=== PATIENT | male | born 1950 | race Caucasian/White ===

== ENCOUNTER 2017-01-10 06:22 | Inpatient (IN) | payer OTHER ==
[2016-12-19 13:20] VITALS: Ht 195.6 cm; Wt 97.6 kg
--- NOTE | 2016-12-19 13:47 | PAT Medication Instructions ---
Service Date Dec 19, 2016. Current Home Medication List Calcium Carbonate (Tums), 1 DOSE PO UD PRN for HEARTBURN Naproxen (Aleve), 220 MG PO Q12 PRN for Pain Medication Instructions For Your Scheduled Surgery - Hold the following medications 7 days prior to surgery per surgeon's instructions: Naproxen (Aleve), 220 MG PO Q12 PRN for Pain - Hold the following medications the morning of surgery: Calcium Carbonate (Tums), 1 DOSE PO UD PRN for HEARTBURN nothing to eat or drink after midnight If you have any questions please call us at [phone] or [phone] or [phone]
--- NOTE | 2016-12-19 14:19 | DIAGNOSTIC IMAGING REPORT ---
CHEST 2 VIEWS ROUTINE CLINICAL HISTORY: PAT preoperative evaluation COMPARISON STUDY: No previous studies for comparison. FINDINGS: The bones soft tissues and hemidiaphragms are normal. The cardiomediastinal silhouette is normal. The lungs are clear. The pulmonary vasculature is normal. IMPRESSION: Negative chest. The above report was generated using voice recognition software. It may contain grammatical, syntax or spelling errors. Electronically signed by: Eran Etienne M.D. 12/19/2016 2:18 PM Dictated Date/Time: 12/19/2016 2:17 PM
[2016-12-19 14:52] LABS: BASO % 0.4 %; BASO ABS # 0.03 K/uL (0-0.2); COMPLETE YES; EOS % 2.5 %; HEMATOCRIT 55.6 % (42-52); IG% 0.1 %; LYMPH % 14.6 %; MEAN CELL VOLUME 104.5 fL (80-100); MEAN CORPUSCULAR HEMOGLOBIN 35.9 pg (25-34); MEAN CORPUSCULAR HGB CONC 34.4 g/dl (32-36); MEAN PLATELET VOLUME 10.3 fL (7.4-10.4); MONO % 9.2 %; NEUT % 73.2 %; PLATELET COUNT 180 K/uL (130-400); RED BLOOD COUNT 5.32 M/uL (4.7-6.1); WHITE BLOOD COUNT 6.83 K/uL (4.8-10.8)
[2016-12-19 14:57] LABS: URINE APPEARANCE CLEAR (CLEAR); URINE COLOR ORANGE; URINE NITRITE POS (NEG); URINE PH 5.5 (4.5-7.5); URINE SPECIFIC GRAVITY 1.029 (1.000-1.030); UROBILINOGEN NEG (NEG)
[2016-12-19 14:59] LABS: CREATININE 1.5 mg/dl (0.60-1.40); ESTIMATED AVERAGE GLUCOSE 91 mg/dl; HA1C FLAG Normal (Normal); POTASSIUM 5.1 mmol/L (3.5-5.1)
[2016-12-19 15:03] LABS: MANUAL MICROSCOPIC REQUIRED? NO; REVIEW REQ? NO
[2016-12-19 15:04] LABS: URINE BILIRUBIN NEG (NEG)
[2016-12-19 15:09] LABS: INR 1.1 (0.9-1.1); PARTIAL THROMBOPLASTIN RATIO 1.1; PROTHROMBIN TIME (PATIENT) 11.3 SECONDS (9.0-12.0)
--- NOTE | 2016-12-19 15:48 | History and Physical ---
History & Physical Date Dec 19, 2016. Chief Complaint Bilateral knee pain History of Present Illness Mr Lázaro YATES is a 66 year old male who is here for a follow up of knee pain on the left greater than the right. He presents with crepitus, swelling, decreased rom, stiffness and weakness on the left side. In addition, he presents with pain on the left greater than the right. He states that the symptoms have been chronic non-traumatic. Patient is scheduled for bilateral knees TKA to be performed by Dr. French on 01/11/2017 at [facility]. The symptoms occur constantly with intermittent worsening. The problem is worse. Currently the patient states that the symptoms are moderate-severe. The pain is described as aching, discomforting and throbbing. The symptoms occur continuously. He rates his worst pain as 7/10. He rates his current pain as 5/10. The symptoms are aggravated by ascending stairs, daily activities, descending stairs, driving, first steps while awake, kneeling, movement, repetitive activities, sleeping in any position, squatting and walking. Ra states that the symptoms are relieved by no specific activity. In addition to knee pain on the left greater than the right the patient is also experiencing decreased mobility, difficulty bending, difficulty going to sleep, limping, nighttime awakening, pain, stiffness, tenderness and weakness. Pertinent negatives include chills and fever. The patient has had a previous x-ray. Prior NSAIDs include Aleve. He has been treated with a corticosteroid injection on the right and left side equally. Patient has been treated with previous visco supplementation, previous Euflexxa series of 3 injections to bilateral knees. No relief with previous injections. Past Medical/Surgical History denies history of HTN, high cholesterol, DM. Positive history of bladder cancer and GERD Past Surgical History cystoscopy for Bladder Ca Allergies Coded Allergies: No Known Allergies (Unverified , 12/19/16) Home Medications Scheduled PRN Calcium Carbonate (Tums), 1 DOSE PO UD PRN for HEARTBURN Naproxen (Aleve), 220 MG PO Q12 PRN for Pain Physical Examination Skin: warm/dry, no rash Eyes: normal inspection, EOMI, sclerae normal ENT: normal ENT inspection, pharynx normal Head: normocephalic, atraumatic Neck: supple, no adenopathy, trachea midline Respiratory/Chest: lungs clear, normal breath sounds, no respiratory distress Cardiovascular: regular rate, rhythm, no edema, no murmur Addiitonal Comments: Physical Exam Exam Findings Details Knee ROM L * Active ROM - Flexion: 125 degrees, Extension: 3 degrees, Factors: normal, Description: active pain free range of motion. Passive ROM - Flexion: 125 degrees, Extension: 3 degrees, Factors: normal, Description: passive pain free range of motion. Knee ROM R * Active ROM - Flexion: 125 degrees, Extension: 3 degrees, Factors: normal, Description: active pain free range of motion. Passive ROM - Flexion: 125 degrees, Extension: 3 degrees, Factors: normal, Description: passive pain free range of motion. Strength LE Normal Strength Description - Normal lower extremity: Bilateral. Knee * Inspection - Gait: normal. Alignment - Right: varus, Left: varus. Ecchymosis - Right: negative, Left: negative. Effusion - Right: mild, Left: mild. Swelling - Right: mild, Left: mild. Flexibility - Right: normal, Left: normal. Maximum tenderness - Right: medial joint line, Left: medial joint line. Patella exam - Crepitation - Right: negative, Left: negative. Patella position - Right: neutral, Left: neutral. Tilt - Right: equal, Left: equal. Darshan's - lateral - Right: Positive, Left: Positive. [facility]'s - medial - Right: Positive , Left: Positive. Knee Comments No calf tenderness Knee Normal Inspection - Atrophy - Right: Absent, Left: Absent. Skin - Right: Normal, Left: Normal. Patella exam - Apprehension - Right: Negative, Left: Negative. Q-angle - Right: Normal, Left: Normal. Ele's - Right: Negative, Left: Negative. Posterior drawer - Right: Negative, Left: Negative. Anterior drawer - Right: Negative, Left: Negative. Valgus stress - Right: Negative, Left : Negative. Varus stress - Right: Negative, Left: Negative. Extensor lag - Right : Normal, Left: Normal. Neurovascular LE Normal Neurovascular examination including reflexes, sensation , and pulses is within normal limits. Bilateral Knee X-ray Xrays reviewed of left and right knees showing findings consistent with degenerative joint disease including joint space narrowing, subchondral sclerosis and peripheral osteophyte formation. no acute bony pathology, overall varus alignment. Impression: degenerative joint disease of Bilateral knees with no acute bony pathology noted. Diagnosis Bilateral Knee DJD Further care discussed with patient and at this point in time has failed conservative measures and would like to proceed with bilateral total knee replacements. Plan on discharge will be home with home health physical therapy. DVT prophalaxis with TEDs, SCDs and will also place on aspirin 81 mg p.o. b.i.d. for a month postop. Patient will have follow up appointment in our office two weeks post op for staple/suture removal and re-evaluation. Patient otherwise has no other questions or concerns. GERD History of Bladder cancer
[~2017-01-10] VITALS: Ht 195.6 cm; Wt 97.6 kg
[2017-01-10] VITALS (8 sets, daily range): BP systolic 120–172; BP diastolic 80–97; PULSE 49–104; TEMP 36.4–36.6; O2SAT 95–97
[~2017-01-10 06:22] MED LIST: ACETAMINOPHEN 500 MG TAB PO SCH; CALC500C3 PO; CEFAZOLIN 2000 MG/60 ML D5W 60 ML IV SCH; CeleBREX 200 MG CAP PO SCH; DEXAMETHASONE 4 MG TAB PO SCH; FAMOTIDINE 20 MG TAB PO SCH; GABAPENTIN 300 MG CAP PO SCH; LACTATED RINGER'S 1000ML 1,000 ML IV SCH; LACTATED RINGER'S 1000ML 500 ML IV SCH; METOCLOPRAMIDE HCL 10 MG TAB PO SCH; NAPR1TAB9 PO
[2017-01-10] MEDS ORDERED: BUPIVACAINE 0.25% 30 ML VIAL ONE (06:28)
[2017-01-10] MEDS ORDERED: BUPIVACAINE 0.5 % 5 MG/1 ML PF 10ML VIAL ONE (06:28)
[2017-01-10] MEDS ORDERED: PROPOFOL IV EMULSION 10 MG/ML 20 ML VIAL IV ONE (06:43)
[2017-01-10] MEDS ORDERED: MIDAZOLAM HCL 1 MG/ML 2ML VIAL ONE ×2 (06:43→10:18)
[2017-01-10] MEDS ORDERED: LIDOCAINE HCL 2% 2 ML VIAL (20MG/ML) ONE (06:43)
--- NOTE | 2017-01-10 06:54 | History & Physical Bridge Note ---
H&P Re-Evaluation Bridge Note: I have examined the patient, reviewed the History & Physical and in the interval since the performance of the History & Physical I have noted the following changes of clinical significance: No changes noted
[2017-01-10] MEDS ORDERED: BACITRACIN 50000 UNIT VIAL ONE ×2 (07:54→07:55)
[2017-01-10] MEDS ORDERED: POVIDONE-IODINE OP SOLN 30 ML BTL ONE (07:54)
[2017-01-10] MEDS ORDERED: ORTHO JOINT ANESTHETIC ONE (07:54)
[2017-01-10] MEDS: TRANEXAMIC ACID INJ 1,000 MG in SODIUM CHLORIDE 0.9% 100ML 100 ML IV SCH ×2 (08:09→13:18)
[2017-01-10] MEDS ORDERED: ONDANSETRON INJ 2 MG/ML 2 ML VIAL IV PRN ×2 (09:30→11:45)
[2017-01-10] MEDS ORDERED: HYDROmorphone INJ 0.5 MG/0.5 ML SYR IV PRN (09:30)
[2017-01-10] MEDS ORDERED: ATROPINE SULFATE 0.1 MG/ML 5ML SYR IV PRN (09:30)
[2017-01-10] MEDS ORDERED: PHENYLEPHRINE 100MCG/ML 5ML SYR IV PRN (09:30)
[2017-01-10] MEDS ORDERED: EpHEDrine SULFATE INJ 50 MG/ML AMP IV PRN (09:30)
[2017-01-10] MEDS ORDERED: KETOROLAC TROMETHAMINE 15 MG/ML VIAL IV. PRN (09:30)
--- NOTE | 2017-01-10 11:00 | [facility] Operative Report ---
Operative Report Operative Date Jan 10, 2017. Pre-Operative Diagnosis Bilateral degenerative joint disease Post-Operative Diagnosis Bilateral degenerative joint disease Procedure(s) Performed Bilateral Total Knee Arthroplasty utilizing Pfeiffer & Nephew journey 2 patient matched right size 9 femur 8 tibia Ignacia 38 oval patella left size 8 femur the tibia 11 Ignacia [address] Sergio French [employer] Head Surgeon(s) Herman Keys PA-C Estimated Blood Loss 5cc rt 5 cc lt Findings Severe tricompartmental degenerative joint disease with varus alignment bilateral knees Specimens Specimen A. Left knee bone and tissue B. Right knee bone and tissue Complication(s) None Disposition Recovery Room / PACU Indications Severe end-stage DJD bilateral knees not responsive to conservative therapy including injections viscous supplementations corticosteroid injections well tarsectomy modification Description of Procedure After proper prepping and draping of the bilateral lower extremities, an anterior midline incision was made over the region of the extensor extensor mechanism of the left knee. After meticulous hemostasis was obtained and maintained in subcutaneous tissues a medial parapatellar incision was made The patella was subluxed lateralward the medial lateral gutter were cleaned from any hypertrophic synovitis and scar tissue of the distal femoral block was placed and the distal femoral osteotomy cut was made subsequently the chamfers anterior and posterior osteotomy cuts were made utilizing the 4-in-1 block the tibia was subsequently subluxed anteriorward medial and ateral meniscal remnants were excised in their entirety remnants of the anterior and posterior cruciate ligaments were excised in their entirety excellent exposure of the proximal tibia was obtained the tibial osteotomy guide was placed on the proximal tibial osteotomy cut was made once again the knee was irrigated with copious amounts of sterile saline solution the patella was subsequently everted lateralward thickened scar tissue around the patella was removed the patella was subsequently cut utilizing a freehand technique and was drilled prepared for final preparation and placement of patella socially flexion-extension gaps were checked and the equal and symmetric trials were placed to the appropriate femoral and tibial trials with poly-spacer being placed for equal flexion and extension gaps and full range of motion including extension to 0 and flexion to 140 the trial components after having been taken to recovery range of motion was subsequently removed meticulous hemostasis was obtained and maintained subsequently a knee block injection of joint cocktail including ropivacaine 0.5 % 150 mg. Bupivacaine 0.5% epinephrine 1-200,030 mL's toradol 30 mg dexamethasone 4 mg ketamine 10 mg clonidine 100 micrograms normal saline solution 30 mg was infiltrated into the soft tissues of the posterior knee medial lateral gutters and periosteal synovium special attention was paid to protect neurovascular structures at all times subsequently trial components having been removed the knee was irrigated with sterile saline solution. debris was removed the proximal tibia was subsequently prepared and was made ready for the placement of the tibial component tibial component was also cemented and tamped into position the femoral component was subsequently placed and cemented in the position the patellar component was subsequently cemented in position because hemostasis once again obtained and maintained wound having been thoroughly irrigated with debridement and debridement lavage was performed as well as a medial parapatellar incision closed with #1 Vicryl in interrupted fashion subcutaneous was closed with #2 Vicryl skin was closed with skin clips Next, an anterior midline incision was made over the region of the extensor extensor mechanism of the right knee. After meticulous hemostasis was obtained and maintained in subcutaneous tissues a medial parapatellar incision was made The patella was subluxed lateralward the medial lateral gutter were cleaned from any hypertrophic synovitis and scar tissue of the distal femoral block was placed and the distal femoral osteotomy cut was made subsequently the chamfers anterior and posterior osteotomy cuts were made utilizing the 4-in-1 block the tibia was subsequently subluxed anteriorward medial and ateral meniscal remnants were excised in their entirety remnants of the anterior and posterior cruciate ligaments were excised in their entirety excellent exposure of the proximal tibia was obtained the tibial osteotomy guide was placed on the proximal tibial osteotomy cut was made once again the knee was irrigated with copious amounts of sterile saline solution the patella was subsequently everted lateralward thickened scar tissue around the patella was removed the patella was subsequently cut utilizing a freehand technique and was drilled prepared for final preparation and placement of patella socially flexion-extension gaps were checked and the equal and symmetric trials were placed to the appropriate femoral and tibial trials with poly-spacer being placed for equal flexion and extension gaps and full range of motion including extension to 0 and flexion to 140 the trial components after having been taken to recovery range of motion was subsequently removed meticulous hemostasis was obtained and maintained subsequently a knee block injection of joint cocktail including ropivacaine 0.5 % 150 mg. Bupivacaine 0.5% epinephrine 1-200,030 mL's toradol 30 mg dexamethasone 4 mg ketamine 10 mg clonidine 100 micrograms normal saline solution 30 mg was infiltrated into the soft tissues of the posterior knee medial lateral gutters and periosteal synovium special attention was paid to protect neurovascular structures at all times subsequently trial components having been removed the knee was irrigated with sterile saline solution. debris was removed the proximal tibia was subsequently prepared and was made ready for the placement of the tibial component tibial component was also cemented and tamped into position the femoral component was subsequently placed and cemented in the position the patellar component was subsequently cemented in position because hemostasis once again obtained and maintained wound having been thoroughly irrigated with debridement and debridement lavage was performed as well as a medial parapatellar incision closed with #1 Vicryl in interrupted fashion subcutaneous was closed with #2 Vicryl skin was closed with skin clips.. PA-C was necessary for prepping and drapping as well as wound closure of deep fascia Sub cutaneous tissue and skin and was necessary for the case. A sterile compressive dressings were placed, patient was taken to recovery in stable condition of report dictated by Manolo I attest to the content of the Intraoperative Record and any orders documented therein. Any exceptions are noted below. I attest to the content of the Intraoperative Record and any orders documented therein. Any exceptions are noted below.
[2017-01-10] MEDS ORDERED: KETOROLAC TROMETHAMINE 30 MG/ML VIAL IV. SCH (11:45)
[2017-01-10] MEDS ORDERED: ALUMINUM/MAGNESIUM/SIMETH (MAALOX MAX) 30 ML UDC PO PRN (11:45)
[2017-01-10] MEDS ORDERED: MoRPHine SULFATE 2 MG/ML CARP IV PRN (11:45)
[2017-01-10] MEDS ORDERED: MAGNESIUM HYDROXIDE SUSP 30 ML UDC PO PRN (11:45)
[2017-01-10] MEDS ORDERED: BISACODYL 10 MG SUPP PR PRN (11:45)
--- NOTE | 2017-01-10 12:12 | DIAGNOSTIC IMAGING REPORT ---
RIGHT KNEE 2 VIEWS History: Right total knee arthroplasty. Degenerative arthritis. Postop. FINDINGS: The patient is status post a right total knee arthroplasty. The hardware is intact. No fracture or dislocation. Skin khoi and surgical drains are in place. IMPRESSION: Right total knee arthroplasty. No evidence for hardware complication. Electronically signed by: Easton Velez M.D. 01/10/2017 12:11 PM Dictated Date/Time: 01/10/2017 12:09 PM
--- NOTE | 2017-01-10 12:13 | DIAGNOSTIC IMAGING REPORT ---
LEFT KNEE 2 VIEWS History: Left total knee arthroplasty. Degenerative arthritis. Postop. FINDINGS: The patient is status post a left total knee arthroplasty. The hardware is intact. No fracture or dislocation. Skin khoi and surgical drains are in place. IMPRESSION: Left total knee arthroplasty. No evidence for hardware complication. Electronically signed by: Easton Velez M.D. 01/10/2017 12:11 PM Dictated Date/Time: 01/10/2017 12:11 PM
--- NOTE | 2017-01-10 12:16 | Anesthesiology Progress Note ---
Anesthesia Post Op Note Date & Time Jan 10, 2017 at 12:15 Vital Signs Pain Intensity: 0 Vital Signs Past 12 Hours Date Time Temp Pulse Resp B/P (MAP) Pulse Ox O2 Delivery O2 Flow Rate FiO2 01/10/17 11:34 36.1 58 16 135/87 98 Nasal Cannula 2 01/10/17 07:12 36.6 60 18 172/97 97 Room Air Notes Mental Status: alert / awake / arousable, participated in evaluation Pt Amnestic to Procedure: Yes Nausea / Vomiting: adequately controlled Pain: adequately controlled Airway Patency, RR, SpO2: stable & adequate BP & HR: stable & adequate Hydration State: stable & adequate Anesthetic Complications: no major complications apparent
[2017-01-10] MEDS ORDERED: MoRPHine SULFATE 10 MG/ML CARP/VIAL IV PRN (13:00)
[2017-01-10] MEDS ORDERED: MoRPHine SULFATE 4 MG/ML 1 ML CARP\\VIAL IV PRN (13:00)
[2017-01-10] MEDS: ROPIVACAINE 5MG/ML 30 ML 150 MG, BUPIVACAINE/EPINEPHR 0.5% MPF 30 ML, KETOROLAC TROMETH... INFIL SCH ×14 (13:17→13:39)
[2017-01-10] MEDS: FERROUS GLUCONATE 324 MG TAB PO SCH ×2 (13:38→17:55)
[2017-01-10] MEDS: D5W AND 1/2NSS + 20MEQ KCL 1,000 ML IV SCH ×2 (13:39→22:46)
[2017-01-10] MEDS ORDERED: PNEUMOCOCCAL POLYSACCHARIDES 25 MCG/0.5 ML VIAL/SYR IM. ONE (14:15)
[2017-01-10] MEDS ORDERED: PNEUMOCOCCAL ADMINISTRATION CHARGE ONE (14:15)
[2017-01-10] MEDS: ACETAMINOPHEN 500 MG TAB PO SCH (16:07)
[2017-01-10] MEDS: CEFAZOLIN IV 2,000 MG in DEXTROSE 5% 50ML 50 ML IV SCH (17:55)
[2017-01-10] MEDS: OXYCODONE HCL 10 MG TABCR (OXYCONTIN) PO SCH (20:58)
[2017-01-10] MEDS: ASPIRIN 81 MG ECTAB PO SCH (20:58)
[2017-01-10] MEDS: SENNA 8.6 MG TAB PO SCH (20:58)
[2017-01-10] MEDS: DOCUSATE SODIUM 100 MG CAP PO SCH (20:59)
[2017-01-10] MEDS ORDERED: CeleBREX 200 MG CAP PO SCH (21:00)
[2017-01-11] MEDS: ACETAMINOPHEN 500 MG TAB PO SCH ×3 (00:03→15:38)
[2017-01-11] MEDS: CEFAZOLIN IV 2,000 MG in DEXTROSE 5% 50ML 50 ML IV SCH (01:59)
[2017-01-11 03:12] VITALS: BP 120/76; PULSE 59; TEMP 36.4; O2SAT 96
[2017-01-11] MEDS ORDERED: TRANEXAMIC ACID INJ 1,000 MG in SODIUM CHLORIDE 0.9% 100ML 100 ML IV SCH (06:00)
[2017-01-11] MEDS ORDERED: LACTATED RINGER'S 1000ML 1,000 ML IV SCH ×2 (06:00)
[2017-01-11] MEDS ORDERED: CEFAZOLIN 2000 MG/60 ML D5W 60 ML IV SCH (06:00)
[2017-01-11] MEDS ORDERED: ROPIVACAINE 5MG/ML 30 ML 150 MG, BUPIVACAINE/EPINEPHR 0.5% MPF 30 ML, KETOROLAC TROMETH... INFIL SCH ×7 (06:00)
[2017-01-11] MEDS ORDERED: ACETAMINOPHEN 500 MG TAB PO SCH (06:00)
[2017-01-11] MEDS ORDERED: LACTATED RINGER'S 1000ML 500 ML IV ONE (06:00)
[2017-01-11] MEDS ORDERED: DEXAMETHASONE 4 MG TAB PO SCH (06:00)
[2017-01-11] MEDS ORDERED: METOCLOPRAMIDE HCL 10 MG TAB PO SCH (06:00)
[2017-01-11] MEDS ORDERED: FAMOTIDINE 20 MG TAB PO SCH (06:00)
[2017-01-11] MEDS ORDERED: GABAPENTIN 300 MG CAP PO SCH (06:00)
[2017-01-11] MEDS ORDERED: CeleBREX 200 MG CAP PO SCH (06:00)
[2017-01-11 06:18] LABS: HEMATOCRIT 36.5 % (42-52); MEAN CELL VOLUME 101.4 fL (80-100); MEAN CORPUSCULAR HEMOGLOBIN 35.6 pg (25-34); MEAN CORPUSCULAR HGB CONC 35.1 g/dl (32-36); MEAN PLATELET VOLUME 10.2 fL (7.4-10.4); PLATELET COUNT 178 K/uL (130-400); WHITE BLOOD COUNT 11.55 K/uL (4.8-10.8)
[2017-01-11 06:53] LABS: BUN/CREATININE RATIO 12.9 (10-20); CALCIUM 8.3 mg/dl (8.5-10.1); CREATININE 0.92 mg/dl (0.60-1.40); POTASSIUM 4.7 mmol/L (3.5-5.1)
--- NOTE | 2017-01-11 07:00 | Orthopedic Progress Note ---
Orthopedic Progress Note Date of Service Jan 11, 2017. Subjective Post OP Day: 1 (s/p Bilateral TKA) Reports: feeling well, pain controlled w PO medications, Denies: complaints, chest pain, SOB, nausea / vomiting, light headedness, calf pain Objective calves soft nontender, N/V intact, capillary refill less than 2 sec., dressing C /D/I, A&O x3, toes mobile, hemovac drainage (300cc/8 hr left knee, 250cc/8 hr right knee) Date Time Temp Pulse Resp B/P (MAP) Pulse Ox O2 Delivery O2 Flow Rate FiO2 01/11/17 03:12 36.4 59 16 120/76 (91) 96 Room Air 01/11/17 00:00 Room Air 01/10/17 23:09 36.5 65 16 136/85 (102) 96 Room Air 01/10/17 19:00 83 20 127/91 (103) 97 Room Air 01/10/17 15:55 Room Air 01/10/17 15:50 36.4 64 20 135/85 (102) 96 Room Air 01/10/17 14:46 75 16 120/80 (93) 95 2.0 01/10/17 13:50 104 16 127/86 (100) 97 2.0 01/10/17 13:23 36.4 53 16 136/85 (102) 97 Nasal Cannula 1.0 01/10/17 12:50 99 Nasal Cannula 1.0 01/10/17 12:50 36.4 49 16 136/87 (103) 97 Nasal Cannula 1.0 01/10/17 12:36 55 10 01/10/17 12:36 54 10 97 01/10/17 12:31 50 19 97 01/10/17 12:31 50 19 01/10/17 12:30 36.2 50 15 136/83 96 Nasal Cannula 2 01/10/17 12:30 136/83 01/10/17 12:26 52 12 97 01/10/17 12:26 52 12 01/10/17 12:21 46 16 01/10/17 12:21 45 16 98 01/10/17 12:16 48 18 01/10/17 12:16 47 18 97 01/10/17 12:15 36.2 48 19 122/88 95 Nasal Cannula 2 01/10/17 12:15 122/80 01/10/17 12:14 53 21 01/10/17 12:14 55 21 98 01/10/17 12:09 49 17 134/81 97 01/10/17 12:09 49 17 01/10/17 12:07 134/81 01/10/17 12:04 53 19 01/10/17 12:04 52 19 97 01/10/17 12:01 125/79 01/10/17 11:59 52 17 01/10/17 11:59 55 17 95 01/10/17 11:56 121/82 01/10/17 11:54 54 17 01/10/17 11:54 53 17 96 01/10/17 11:51 124/71 01/10/17 11:49 57 18 01/10/17 11:49 55 18 95 01/10/17 11:47 127/83 01/10/17 11:44 55 19 97 01/10/17 11:44 55 19 01/10/17 11:41 133/79 01/10/17 11:39 65 16 01/10/17 11:39 59 16 01/10/17 11:35 135/87 01/10/17 11:34 36.1 58 16 135/87 98 Nasal Cannula 2 01/10/17 07:12 36.6 60 18 172/97 97 Room Air Laboratory Results 24 Hours: Test 01/11/17 05:42 Hematocrit 36.5 % Hemoglobin 12.8 g/dL Assessment & Plan Assessment: POD #1 s/p Bilateral TKA -pt/ot -dvt proph with otilia/scd/asa -plan for dc home with HHPT using [facility] Discharge Planning Discharge Planning: home with home health DVT Prophylaxis: TEDs, SCDs, ASA Therapy: Physical Therapy
--- NOTE | 2017-01-11 07:06 | Clinical Documentation Query ---
CLINICAL DOCUMENTATION QUERY 67-y/o male who has undergone bilateral TKR's. In your clinical opinion is this patient being managed for: ( ) Chronic kidney disease, stage 3 (moderate) ( ) Other explanation of clinical findings (Please Explain) (x ) Unable to determine (Please Define) ( ) Need to Discuss ( ) Not Agree The medical record reflects the following clinical findings, treatment, and risk factors. Clinical Indicators: Preoperative labs reveal BUN 21, Creatinine 1.50, GFR 48.2, Treatment: IVF's, daily PRP's, Risk Factors: Age, home NSAID therapy (Naproxen) Please clarify and document your clinical opinion in the progress notes and discharge summary. Terms such as "probable", "suspected", "likely", "questionable", "possible", or "still to be ruled out" are acceptable. IF IN AGREEMENT, YOU MUST DOCUMENT ABOVE DIAGNOSTIC STATEMENT IN DAILY PROGRESS NOTES AND DISCHARGE SUMMARY. This document is not part of the patient's record. Documenting the stage of CKD will improve data integrity and will help clarify vague terms such as "renal insufficiency" or "chronic renal failure." The stages of CKD according to the [employer] are as follows: Stage I: GFR >90 Stage II: GFR 60-89 Stage III: GFR 30-59 Stage IV: GFR 15-29 Stage V: GFR <15 Thank You, Clint Palmer, RN [phone]
[2017-01-11 08:06] VITALS: BP 110/78; PULSE 64; TEMP 36.4; O2SAT 100
--- NOTE | 2017-01-11 08:56 | Discharge Instructions ---
Discharge Instructions Date of Service Jan 11, 2017. Admission Reason for Admission: Bilateral Knee Osteoarthritis Discharge Discharge Diagnosis / Problem: s/p Bilateral TKA Discharge Goals Goal(s): Decrease discomfort, Improve function, Increase independence Activity Recommendations Activity Limitations: as noted below Weightbearing Status: Left weightbearing (as tolerated), Right weightbearing ( as tolerated) . Instructions / Follow-Up Instructions / Follow-Up ACTIVITY RECOMMENDATIONS: SELF CARE INSTRUCTIONS AFTER TOTAL KNEE REPLACEMENT A. You may need to continue a physical therapy program after discharge from the hospital. There are several options available to you. Your doctor will assist you in selecting the best one for you. 1. An out-patient facility 2 to 3 times a week for therapy or home therapy. 2. Continue working on all exercises taught to you in the hospital. Your goals should be to increase bending of your knee to 90 degrees and beyond and to fully straighten your knee. B. You may progress at your own pace from walking with a walker or crutches to a cane; then to no assistive devices. C. Make walking a part of your daily routine. Be up as much as comfortable with rest periods throughout the day. Rest with leg elevation is very important. Use the ice wrap frequently for the first 3-4 weeks. D. There are no restrictions on activities. You may ride in a car, shop, participate in dowel machine operator and all social activities. E. Wear the long elastic stockings (JOEL hose) 20 hours a day for 2 weeks after surgery. They can be removed several times a day for laundering and for a bath. F. You may shower, no tub baths until cleared by your doctor. SPECIAL CARE INSTRUCTIONS: VERY IMPORTANT TO READ AND REVIEW A. There are a few signs you need to watch for after you are home. Call [facility] if you notice any of the followin. Increased severe knee pain. Some pain is expected especially when you exercise. 2. Increased swelling in your leg or knee; pain or swelling of the calf muscle in either lower leg. 3. Any fluid drainage from the incision. 4. Shortness of breath or chest pain. B. Please call [facility] at if you have any concerns or questions about your operation or recovery. The doctor or his nurse will return your call promptly. C. You must take antibiotics before dental work, bladder, bowel or other surgery. Your doctor will provide you with a permanent care to carry describing this precaution. IMPORTANT: * REMEMBER TO TAKE ASPIRIN, 81 MG, TWICE DAILY FOR 4 WEEKS UNLESS OTHERWISE DIRECTED. THIS IS YOUR BLOOD THINNER. * HIGH RISK PATIENTS MAY BE PRESCRIBED A STRONGER BLOOD THINNER. THIS WILL BE PROVIDED AT DISCHARGE. * CALL IF INCREASED PAIN, REDNESS, DRAINAGE OR FEVER GREATER THAT 101. * WEAR JOEL HOSE 20 HOURS PER DAY FOR 2 WEEKS. * YOU MAY HAVE A LARGE BAND-AID LIKE DRESSING (SILVERON). THIS WILL REMAIN ON YOUR INCISION FOR 7 DAYS, THEN CAN BE REMOVED. IF INCISION IS LEAKING THROUGH DRESSING, CALL THE OFFICE . FOLLOW UP VISIT: If appointment is not already scheduled: Please call [facility] to make a follow-up appointment for 2 weeks after your surgery at . Current Hospital Diet Patient's current hospital diet: Regular Diet Discharge Diet Recommended Diet: Regular Diet Procedures Procedures Performed: Bilateral Total Knee Arthroplasty utilizing Pfeiffer & Nephew journey 2 patient matched right size 9 femur 8 tibia Ignacia 38 oval patella left size 8 femur the tibia 11 Ignacia 38 patella Pending Studies Studies pending at discharge: no Laboratory Results Hemoglobin A1c Test 12/19/16 13:56 Range/Units Estimated Average Glucose 91 mg/dl Hemoglobin A1c 4.8 4.5-5.6 % Medical Emergencies . Who to Call and When: Medical Emergencies: If at any time you feel your situation is an emergency, please call 911 immediately. . Non-Emergent Contact Non-Emergency issues call your: Primary Care Provider, Surgeon . "Provider Documentation" section prepared by Eran Steen. . VTE Core Measure Inpt VTE Proph given/why not?: Other Anticoagulation (ASA 81mg po bid x 1 month ), T.E.Destiney Wilson, SCD's [place] Drug Monitoring Program Search Results: patient reviewed within database, no issues identified
[2017-01-11] MEDS: FERROUS GLUCONATE 324 MG TAB PO SCH ×3 (09:11→17:25)
[2017-01-11] MEDS: ASPIRIN 81 MG ECTAB PO SCH ×2 (09:12→21:26)
[2017-01-11] MEDS: MULTIVITAMIN TAB PO SCH (09:12)
[2017-01-11] MEDS: PANTOprazole SOD 40 MG TAB PO SCH (09:12)
[2017-01-11] MEDS: OXYCODONE HCL 10 MG TABCR (OXYCONTIN) PO SCH ×2 (09:13→21:26)
[2017-01-11] MEDS: OXYCODONE HCL IR 5 MG TAB (IMMEDIATE RELEASE) PO PRN ×2 (09:13→13:39)
[2017-01-11] MEDS: DOCUSATE SODIUM 100 MG CAP PO SCH ×2 (09:59→21:26)
[2017-01-11] MEDS: D5W AND 1/2NSS + 20MEQ KCL 1,000 ML IV SCH (10:01)
[2017-01-11 10:23] VITALS: O2SAT 100
[2017-01-11 12:19] VITALS: BP 108/68; PULSE 56; TEMP 36.6; O2SAT 97
[2017-01-11 15:21] VITALS: BP 136/80; PULSE 79; TEMP 36.6; O2SAT 99
[2017-01-11] MEDS: SENNA 8.6 MG TAB PO SCH (21:26)
[2017-01-11 22:56] VITALS: BP 102/68; PULSE 72; TEMP 36.4; O2SAT 99
[2017-01-12] MEDS: ACETAMINOPHEN 500 MG TAB PO SCH ×3 (00:16→15:52)
--- NOTE | 2017-01-12 06:59 | Orthopedic Progress Note ---
Orthopedic Progress Note Date of Service Jan 12, 2017. Subjective Post OP Day: 2 Reports: feeling well, light headedness (x1 this am when drains were pulled), pain controlled w PO medications, Denies: complaints, chest pain, SOB, nausea / vomiting, calf pain Objective calves soft nontender, N/V intact, capillary refill less than 2 sec., dressing C /D/I (silverlon intact), A&O x3, toes mobile normal post op bruising and swelling noted bilateral knees, right greater than left. Date Time Temp Pulse Resp B/P (MAP) Pulse Ox O2 Delivery O2 Flow Rate FiO2 01/11/17 22:56 36.4 72 18 102/68 (79) 99 Room Air 01/11/17 20:20 Room Air 01/11/17 15:21 36.6 79 16 136/80 (98) 99 Room Air 01/11/17 15:15 Room Air 01/11/17 12:19 36.6 56 15 108/68 (81) 97 Room Air 01/11/17 10:23 100 Room Air 01/11/17 08:06 36.4 64 16 110/78 (89) 100 Room Air 01/11/17 07:50 Room Air Assessment & Plan Assessment: POD #2 s/p Bilateral TKA -pt/ot -dvt proph with otilia/scd/asa -plan for dc home with HHPT using [facility] will check H/H this am due to episode of LH. Discharge Planning Discharge Planning: home with home health DVT Prophylaxis: TEDs, SCDs, ASA Therapy: Physical Therapy
[2017-01-12 07:06] VITALS: BP 104/70; PULSE 67; TEMP 36.7; O2SAT 96
[2017-01-12] MEDS ORDERED: RXC5 PO (07:06)
[2017-01-12] MEDS ORDERED: ONDA8TAB6 PO (07:06)
[2017-01-12] MEDS ORDERED: OXYSR10 PO (07:06)
[2017-01-12] MEDS ORDERED: ACET-24 PO (07:06)
[2017-01-12] MEDS ORDERED: ASPEC81 PO (07:06)
[2017-01-12] MEDS ORDERED: CLB200 PO (07:06)
[2017-01-12 07:30] LABS: HEMATOCRIT 30.7 % (42-52)
[2017-01-12] MEDS: OXYCODONE HCL IR 5 MG TAB (IMMEDIATE RELEASE) PO PRN ×2 (07:32→15:49)
[2017-01-12] MEDS: MULTIVITAMIN TAB PO SCH (07:33)
[2017-01-12] MEDS: ASPIRIN 81 MG ECTAB PO SCH (07:33)
[2017-01-12] MEDS: PANTOprazole SOD 40 MG TAB PO SCH (07:33)
[2017-01-12] MEDS: OXYCODONE HCL 10 MG TABCR (OXYCONTIN) PO SCH (07:33)
[2017-01-12] MEDS: FERROUS GLUCONATE 324 MG TAB PO SCH ×2 (07:33→11:49)
[2017-01-12] MEDS: DOCUSATE SODIUM 100 MG CAP PO SCH (07:33)
[2017-01-12 08:00] VITALS: BP 110/70; PULSE 70; TEMP 36.7; O2SAT 100
[2017-01-12 09:00] VITALS: O2SAT 100
[2017-01-12 15:16] VITALS: BP 116/76; PULSE 82; TEMP 36.6; O2SAT 98
--- NOTE | 2017-01-22 16:52 | Discharge Summary ---
Orthopedic Discharge Summary Admission Date/Reason Jan 10, 2017 at 06:45 Bilateral Knee Osteoarthritis. Discharge Date/Disposition Jan 12, 2017 Home with services Diagnosis Principal Diagnosis: Bilateral Knee Djd Procedure(s) Performed Bilateral TKA Medication Reconciliation New Medications: Celecoxib (Celebrex) 200 Mg Cap 200 MG PO Q12, #60 CAP Ondansetron Hcl (Zofran) 8 Mg Tab 8 MG PO Q8 PRN for Nausea, #20 TAB Acetaminophen (Sb Non-Aspirin Extra Stre) 500 Mg Tab 1000 MG PO Q8H, #126 TAB Aspirin (Aspirin EC Low Dose) 81 Mg Ectab 81 MG PO BID for 30 Days, #60 TAB Oxycodone HCl (Oxycontin) 10 Mg Tabcr 10 MG PO Q12, #20 Oxycodone HCl (Oxycodone HCl) 5 Mg Tab 5-10 MG PO Q4H PRN for Pain, #60 TAB Continued Medications: Calcium Carbonate (Tums) 500 Mg Chew 1 DOSE PO UD PRN for HEARTBURN Discontinued Medications: Naproxen (Aleve) 220 Mg Tab 220 MG PO Q12 PRN for Pain, TAB Admission Physical Exam As per Admitting History & Physical. Hospital Course The Patient had an uneventful hospital course. Labs remained stable- lowest hemoglobin recorded: 10.6 . Pain controlled on oral medications. Participated in PT with ambulation distance of 650 feet. ROM of operative L knee reached 118 degrees; R knee 110 degrees. Drainage output totaled Left knee 1175 cc, Right knee 835 cc prior to discontinuation. Patient did have a reported bowel movement. Incisions remained clean/dry/intact. DVT prophylaxis with Aspirin EC 81mg BID x 30 days/Sony stockings. Patient discharged home with Home Health Services in stable condition. Please refer to daily progress notes for further details. Discharge Instructions Please refer to the electronic Patient Visit Report (Discharge Instructions) for additional information.
== END 2017-01-12 16:30 | disposition home health service (06) | DRG 462 ==
LOC: C.ACU 06:22 → C.3E 06:45 → ENRESERV 12:25
PROVIDERS: ADMIT Orthopaedic Surgery; ATTEND Orthopaedic Surgery
PROC: 0SRD0J9 Replacement of Left Knee Joint with Synthetic Substitute, Cemented, Open Approach (ICD-10-PCS; principal; 2017-01-10 08:15)
PROC: 0SRC0J9 Replacement of Right Knee Joint with Synthetic Substitute, Cemented, Open Approach (ICD-10-PCS; principal; 2017-01-10 08:15)
DX: M17.0 Bilateral primary osteoarthritis of knee (principal); R42 Dizziness and giddiness; K21.9 Gastro-esophageal reflux disease without esophagitis; Z85.51 Personal history of malignant neoplasm of bladder